=== PATIENT | female | born 1975 | race African-American/Black ===

== ENCOUNTER 2020-09-04 14:32 | Emergency (ER) | payer MEDICAID, OTHER ==
[~2020-09-04] VITALS: Ht 170.2 cm; Wt 102.5 kg
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
[2020-09-04] MEDS ORDERED: FENTANYL PF 100MCG/2ML AMPUL ONE (14:38)
[2020-09-04] MEDS ORDERED: MIDAZOLAM HCL 5 MG/5ML VIAL ONE (14:39)
--- NOTE | 2020-09-04 14:55 | NUR ---
SCRAP SORTER AT BEDSIDE FOR XRAY.
[2020-09-04] MEDS ORDERED: FENTANYL PF 100MCG/2ML AMPUL IV ONE (15:00)
[2020-09-04] MEDS ORDERED: MIDAZOLAM HCL 2 MG/2ML VIAL IV ONE (15:00)
[2020-09-04] MEDS ORDERED: ETOMIDATE 2 MG/ML VIAL ONE (15:13)
[2020-09-04] MEDS ORDERED: ETOMIDATE 2 MG/ML VIAL IV ONE (15:30)
--- NOTE | 2020-09-04 16:25 | NUR ---
IV removed. Catheter intact and site benign. Pressure and 4x4 applied to site. No bleeding noted.
[2020-09-04 16:26] VITALS: BP 135/91
== END 2020-09-04 16:26 | disposition home or self-care (01) ==
LOC: ER 14:42
DX: S83.095A Other dislocation of left patella, initial encounter (principal); Z88.0 Allergy status to penicillin; X58.XXXA Exposure to other specified factors, initial encounter; Y93.89 Activity, other specified; Y92.89 Other specified places as the place of occurrence of the external cause; Y99.8 Other external cause status
CPT/HCPCS: 27560; 73564 ×2; 99152; 99285; J2250; J3010; J3490; J7030; G0500